=== PATIENT | male | born 1965 | race Two or more races ===

== ENCOUNTER 2019-11-01 16:05 | Emergency (ER) | payer SELFPAY ==
[~2019-11-01] VITALS: Ht 154.9 cm; Wt 77.1 kg
[2019-11-01 16:06] VITALS: BP 156/100
[2019-11-01] MEDS ORDERED: LISI-607 PO (16:11)
== END 2019-11-01 16:42 | disposition home or self-care (01) ==
LOC: ER 16:06
DX: L40.9 Psoriasis, unspecified (principal); I10 Essential (primary) hypertension; Z79.899 Other long term (current) drug therapy